=== PATIENT | male | born 1960 ===

== ENCOUNTER 2019-07-26 17:26 | Emergency (ER) | payer SELFPAY ==
[2019-07-26] MEDS ORDERED: Lidocaine 1% (PF) 30 ML VIAL ONE (20:04)
[2019-07-26] MEDS ORDERED: Bacitracin 1 PK ONE (20:45)
== END 2019-07-26 20:47 | disposition home or self-care (01) ==
LOC: ERS 17:26
DX: S61.216A Laceration without foreign body of right little finger without damage to nail, initial encounter (principal); W26.8XXA Contact with other sharp object(s), not elsewhere classified, initial encounter
CPT/HCPCS: 12001; J2001